=== PATIENT | female | born 1990 | race African-American/Black ===

== ENCOUNTER 2019-01-19 17:34 | Emergency (ER) | payer SELFPAY ==
[~2019-01-19] VITALS: Ht 175.3 cm; Wt 109.8 kg
[2019-01-19 17:43] VITALS: BP 110/71; TEMP 96.8
[2019-01-19 19:14] VITALS: PULSE 87
== END 2019-01-19 19:15 | disposition home or self-care (01) ==
LOC: COL.ER 17:34
DX: G43.909 Migraine, unspecified, not intractable, without status migrainosus (principal)
CPT/HCPCS: J1200; J1885; J2765